=== PATIENT | male | born 1940 | race Caucasian/White ===

== ENCOUNTER 2020-03-06 08:07 | Outpatient (RCR) | payer MEDICARE, OTHER ==
[~2020-03-06] VITALS: Ht 165 cm; Wt 63.6 kg
[~2020-03-06 08:07] MED LIST: DIPH25CA48 PO; GLUC1CAP37 PO; HYDR-4342 PO; IBUP-2185 PO; LEVO100T7 PO; MULT-1136 PO; NITR100C PO; PRAV20TA3 PO; TMSL.4C PO
== END 2020-03-06 14:05 | disposition home or self-care (01) ==
LOC: PREOP 08:07
PROVIDERS: ATTEND Radiology Radiation Oncology
DX: Z01.818 Encounter for other preprocedural examination (principal); Z11.59 Encounter for screening for other viral diseases; C61 Malignant neoplasm of prostate
CPT/HCPCS: 87635

== ENCOUNTER 2020-03-11 12:13 | Day surgery (SDC) | payer MEDICARE, OTHER ==
[2020-03-11] VITALS (9 sets, daily range): BP systolic 147–195; BP diastolic 71–100
[~2020-03-11] VITALS: Ht 165 cm; Wt 63.6 kg
--- NOTE | 2020-03-11 12:52 | Progress Note-Pre Operative ---
Pre-Operative Progress Note H&P Reviewed The H&P was reviewed, patient examined and no changes noted. Date Seen by Provider: Mar 11, 2020 Time Seen by Provider: 12:51 Date H&P Reviewed: Mar 11, 2020 Time H&P Reviewed: 12:51 Pre-Operative Diagnosis: Prostate cancer cT2b, PSA 12.2, [place] 8 (4+4) EMIGDIO JALLOH MD Mar 11, 2020 12:52
--- NOTE | 2020-03-11 12:58 | Discharge Inst-Simple/Standard ---
Discharge Inst-Standard Reconcile Patient Problems Problems Reviewed?: Yes Discharge Medications New, Converted or Re-Newed RX: Other (Patient has antibiotic at home) Patient Instructions/Follow Up Plan of Care/Instructions/FU: Treatment planning [facility]/mri at [facility] 03/25/20 - patient has paperwork Activity as Tolerated: Yes Discharge Diet: No Restrictions EMIGDIO JALLOH MD Mar 11, 2020 12:58
[2020-03-11] MEDS ORDERED: LACTATED RINGERS 1,000 ML IV PRN (13:06)
--- OUTSIDE RECORDS SUMMARY | 2020-03-11 13:16 | XMS REPORT | Continuity of Care Document ---
Author Organization Unknown Address Unknown Phone Unavailable Allergies Active Description Code Type Severity Reaction Onset Reported/Identified Relationship to Patient Clinical Status Yes ciprofloxacin [id number] Joel g Allergy Mild RASH 03/04/2020 Yes Sulfa (Sulfonamide Antibiotics) [id number] Drug Allergy Mild RASH 0 Yes doxycycline [id number] Drug Aller gy Unknown N/A 03/04/2020 Medications There is no data. Problems Date Dx Coded Attending Type Code Diagnosis Diagnosed By 08/31/1404 EMIGDIO JALLOH MD Ot C61 MALIGNANT NEOPLASM OF PROSTATE 08/31/1404 EMIGDIO JALLOH MD Ot Z01.8 18 ENCOUNTER FOR OTHER PREPROCEDURAL EXAMIN 08/31/1404 EMIGDIO JALLOH MD Ot Z11.5 9 ENCOUNTER FOR SCREENING FOR OTHER VIRAL 03/06/2020 EMIGDIO JALLOH MD Ot C61 MALIGNANT NEOPLASM OF PROSTATE 03/06/2020 EMIGDIO JALLOH MD Ot Z01.8 18 ENCOUNTER FOR OTHER PREPROCEDURAL EXAMIN 03/06/2020 EMIGDIO JALLOH MD Ot Z11.5 9 ENCOUNTER FOR SCREENING FOR OTHER VIRAL Procedures There is no data. Results Test Result Range Coronavirus SARS-CoV-2 SO 2018 - 0 13:03 Coronavirus Ab [Units/volume] in Serum Negative Negative Encounters ACCT No. Visit Date/Time Discharge Status Pt. Type Provider Facility Loc./Unit Complaint [id number] 03/06/2020 08:07:00 020 14:05:00 DIS Outpatient EMIGDIO JALLOH MD [facility] PREOP PROSTATE CANCER [id number] 10/17/2019 12:16:00 020 12:16:00 CAN Preadmit EMIGDIO JALLOH MD [facility] ONC [id number] 03/11/2020 12:13:[address] Outpatient EMIGDIO JALLOH MD [facility] PROSTATE CANCER
[2020-03-11] MEDS ORDERED: ONDANSETRON 4 MG/2 ML (SDV) Z0FRAN ONE ×2 (14:10→16:05)
[2020-03-11] MEDS ORDERED: FAMOTIDINE 20MG/2ML IV (PEPCID) ONE (14:10)
[2020-03-11] MEDS ORDERED: WATER (STERILE) FOR INJECTION 10 ML ONE (14:11)
[2020-03-11] MEDS ORDERED: ceFAZolin INJECTION 1,000 MG ONE (14:11)
[2020-03-11] MEDS ORDERED: FAMOTIDINE 20MG/2ML IV (PEPCID) IVP ONE (14:15)
[2020-03-11] MEDS ORDERED: ceFAZolin INJECTION 1,000 MG in WATER (STERILE) FOR INJECTION 10 ML IV ONE (14:15)
[2020-03-11] MEDS ORDERED: ONDANSETRON 4 MG/2 ML (SDV) Z0FRAN IVP ONE (14:15)
[2020-03-11] MEDS ORDERED: BACITRACIN OINTMENT 28 GM TUBE ONE (14:29)
[2020-03-11] MEDS ORDERED: SEVOFLURANE (ULTANE) 15 ML INHAL SOLN ONE ×2 (16:05→16:38)
[2020-03-11] MEDS ORDERED: proPOfol 200 MG/20 ML (DIPRIVAN) VIAL IV ONE (16:05)
[2020-03-11] MEDS ORDERED: fentaNYL INJECTION 100 MCG/2 ML AMP ONE (16:05)
[2020-03-11] MEDS ORDERED: LIDOCAINE PF 2% 5 ML (XYLOCAINE) VIAL ONE (16:05)
[2020-03-11] MEDS ORDERED: MIDAZOLAM 2 MG/2 ML (VERSED) VIAL ONE (16:05)
[2020-03-11] MEDS ORDERED: DEXAMETHASONE 10 MG/ML (DECADRON) 1 ML VIAL ONE (16:12)
--- NOTE | 2020-03-11 16:48 | NUR ---
HAS VOIDED 575 CC CLEAR, YELLOW URINE WITHOUT PROBLEM AND TAKING PO FLUIDS WELL. GAIT STEADY WHEN UP WITH ASSIST TO BR. ALERT, DENIES COMPLAINTS. NO RECTAL OR PERINEAL BLEEDING. REQUESTING DISMISSAL.
--- NOTE | 2020-03-11 16:56 | Progress Note-Post Operative ---
Post-Operative Progess Note Surgeon (s)/Pressurised Container Filler (s) Surgeon Khushbu COBOS MD Pressurised Container Filler: EMIGDIO JALLOH MD Pre-Operative Diagnosis Prostate cancer cT2b, PSA 12.2, [place] 8 (4+4) Post-Operative Diagnosis Same as pre-op Procedure & Operative Findings Date of Procedure 03/11/20 Procedure Performed/Findings (1) Placement of fiducial gold seed markers (2) Injection of biodegradable hydrogel prostate-rectal spacer utilizing the SpaceOAR system Anesthesia Type General Estimated Blood Loss Estimated blood loss (mL): None Specimens/Packing Specimens Removed None Packing: None EMIGDIO JALLOH MD Mar 11, 2020 16:56
[2020-03-11] MEDS ORDERED: morphine INJ 10 MG/ML 1ML (SYR OR VIAL) IVP ONE (17:00)
[2020-03-11] MEDS ORDERED: ONDANSETRON 4 MG/2 ML (SDV) Z0FRAN IVP PRN (17:00)
--- NOTE | 2020-03-11 17:28 | Anesthesia-General Post-Op ---
General Patient Condition Mental Status/LOC: Same as Preop Cardiovascular: Satisfactory Nausea/Vomiting: Absent Respiratory: Satisfactory Pain: Controlled Complications: Absent Post Op Complications Complications None Follow Up Care/Instructions Patient Instructions None needed. Anesthesia/Patient Condition Patient Condition Patient is doing well, no complaints, stable vital signs, no apparent adverse anesthesia problems. No complications reported per nursing. LIN ELIZONDO CRNA Mar 11, 2020 17:28
== END 2020-03-11 18:48 | disposition home or self-care (01) ==
LOC: SDC 12:13
PROVIDERS: ATTEND Radiology Radiation Oncology
DX: C61 Malignant neoplasm of prostate (principal); R97.20 Elevated prostate specific antigen [PSA]; E78.5 Hyperlipidemia, unspecified; M19.90 Unspecified osteoarthritis, unspecified site; I10 Essential (primary) hypertension; E03.9 Hypothyroidism, unspecified; E05.00 Thyrotoxicosis with diffuse goiter without thyrotoxic crisis or storm; Z88.1 Allergy status to other antibiotic agents; Z88.2 Allergy status to sulfonamides; Z79.899 Other long term (current) drug therapy; Z79.891 Long term (current) use of opiate analgesic
CPT/HCPCS: 87081